=== PATIENT | female | born 1955 | race American Indian/Alaskan Native ===

== ENCOUNTER 2016-05-28 11:15 | Outpatient (CLI) | payer MEDICARE ==
[2016-05-28 11:32] LABS: Hematocrit 30.4 % (30.3-42.9); Hemoglobin 9.8 gm/dl (10.1-14.3); Mean Corpuscular HGB Conc 32 % (30-34); Mean Corpuscular Hemoglobin 29 pg (28-32); Mean Corpuscular Volume 90 fl (79-97); Platelet Count 167 K/mm3 (140-440); Red Cell Distribution Width 16.8 % (13.2-15.2); White Blood Count 5.7 K/mm3 (4.5-11.0)
[2016-05-28 11:49] LABS: Albumin 3.8 g/dL (3.9-5); BUN/Creatinine Ratio 12.04; Calcium 10.4 mg/dL (8.4-10.2); Chloride 104.1 mmol/L (98-107); Phosphorous 3.8 mg/dL (2.5-4.5); Potassium 4.1 mmol/L (3.6-5.0); Uric Acid 6.7 mg/dL (3.5-7.6)
== END 2016-05-28 11:16 | disposition home or self-care (01) ==
LOC: LAB 11:15
PROVIDERS: ATTEND Internal Medicine
DX: I12.9 Hypertensive chronic kidney disease with stage 1 through stage 4 chronic kidney disease, or unspecified chronic kidney disease (principal); N18.4 Chronic kidney disease, stage 4 (severe); D64.9 Anemia, unspecified; N25.81 Secondary hyperparathyroidism of renal origin; M10.9 Gout, unspecified; E79.0 Hyperuricemia without signs of inflammatory arthritis and tophaceous disease; R94.4 Abnormal results of kidney function studies
CPT/HCPCS: 36415; 80048; 82040; 82570; 84100; 84156; 84550; 85027

== ENCOUNTER 2017-04-16 13:37 | Outpatient (CLI) | payer MEDICARE ==
[2017-04-16 14:00] LABS: Hematocrit 35.3 % (30.3-42.9); Hemoglobin 10.9 gm/dl (10.1-14.3); Mean Corpuscular HGB Conc 31 % (30-34); Mean Corpuscular Hemoglobin 29 pg (28-32); Mean Corpuscular Volume 93 fl (79-97); Platelet Count 139 K/mm3 (140-440); Red Blood Count 3.79 M/mm3 (3.65-5.03); Red Cell Distribution Width 14.9 % (13.2-15.2); White Blood Count 5.3 K/mm3 (4.5-11.0)
[2017-04-16 14:41] LABS: Albumin 4.2 g/dL (3.9-5); Calcium 9.1 mg/dL (8.4-10.2); Chloride 105.6 mmol/L (98-107); Phosphorous 2.9 mg/dL (2.5-4.5); Potassium 4.5 mmol/L (3.6-5.0)
== END 2017-04-16 13:38 | disposition home or self-care (01) ==
LOC: LAB 13:37
DX: I12.9 Hypertensive chronic kidney disease with stage 1 through stage 4 chronic kidney disease, or unspecified chronic kidney disease (principal); N18.5 Chronic kidney disease, stage 5; M10.9 Gout, unspecified; E79.0 Hyperuricemia without signs of inflammatory arthritis and tophaceous disease; N25.81 Secondary hyperparathyroidism of renal origin
CPT/HCPCS: 36415; 80048; 82040; 82043; 83970; 84100; 85027

== ENCOUNTER 2017-07-17 10:13 | Outpatient (CLI) | payer MEDICARE ==
[2017-07-17 10:31] LABS: Hematocrit 37.5 % (30.3-42.9); Hemoglobin 11.8 gm/dl (10.1-14.3); Mean Corpuscular HGB Conc 32 % (30-34); Mean Corpuscular Hemoglobin 29 pg (28-32); Mean Corpuscular Volume 92 fl (79-97); Platelet Count 175 K/mm3 (140-440); Red Blood Count 4.07 M/mm3 (3.65-5.03); Red Cell Distribution Width 15.3 % (13.2-15.2)
[2017-07-17 11:00] LABS: Albumin 4.6 g/dL (3.9-5); Calcium 9.4 mg/dL (8.4-10.2)
[2017-07-17 11:08] LABS: Creatinine,Urine 74.3 mg/dL (0.1-20.0); Microalbumin/Creatinine Ratio 75.3 ug/mg
== END 2017-07-17 10:14 | disposition home or self-care (01) ==
LOC: LAB 10:13
DX: I12.0 Hypertensive chronic kidney disease with stage 5 chronic kidney disease or end stage renal disease (principal); N18.5 Chronic kidney disease, stage 5; M10.9 Gout, unspecified; D64.9 Anemia, unspecified; N25.81 Secondary hyperparathyroidism of renal origin
CPT/HCPCS: 36415; 80053; 82043; 83970; 85027

== ENCOUNTER 2017-11-11 10:47 | Outpatient (CLI) | payer MEDICARE ==
[2017-11-11 11:08] LABS: Hemoglobin 10.7 gm/dl (10.1-14.3); Mean Corpuscular HGB Conc 31 % (30-34); Mean Corpuscular Hemoglobin 29 pg (28-32); Mean Corpuscular Volume 93 fl (79-97); Platelet Count 145 K/mm3 (140-440); Red Blood Count 3.68 M/mm3 (3.65-5.03); Red Cell Distribution Width 15.9 % (13.2-15.2)
[2017-11-11 11:43] LABS: Calcium 9.8 mg/dL (8.4-10.2); Chol/HDL Ratio 2.38 %
[2017-11-11 20:17] LABS: Creatinine,Urine 51.5 mg/dL (0.1-20.0); Microalbumin/Creatinine Ratio 46.6 ug/mg
== END 2017-11-11 10:48 | disposition home or self-care (01) ==
LOC: LAB 10:47
DX: I12.0 Hypertensive chronic kidney disease with stage 5 chronic kidney disease or end stage renal disease (principal); N18.5 Chronic kidney disease, stage 5; E79.0 Hyperuricemia without signs of inflammatory arthritis and tophaceous disease; D64.9 Anemia, unspecified; N25.81 Secondary hyperparathyroidism of renal origin
CPT/HCPCS: 36415; 80053; 80061; 82043; 83970; 85027

== ENCOUNTER 2018-01-19 10:02 | Outpatient (CLI) | payer MEDICARE ==
[2018-01-19 10:27] LABS: Hematocrit 34.6 % (30.3-42.9); Hemoglobin 11.1 gm/dl (10.1-14.3); Mean Corpuscular HGB Conc 32 % (30-34); Mean Corpuscular Hemoglobin 30 pg (28-32); Mean Corpuscular Volume 92 fl (79-97); Platelet Count 159 K/mm3 (140-440); Red Blood Count 3.78 M/mm3 (3.65-5.03); Red Cell Distribution Width 15.6 % (13.2-15.2)
[2018-01-19 10:56] LABS: Albumin 4.6 g/dL (3.9-5); Calcium 9.8 mg/dL (8.4-10.2); Uric Acid 4.7 mg/dL (3.5-7.6)
== END 2018-01-19 10:03 | disposition home or self-care (01) ==
LOC: LAB 10:02
DX: I12.9 Hypertensive chronic kidney disease with stage 1 through stage 4 chronic kidney disease, or unspecified chronic kidney disease (principal); N18.4 Chronic kidney disease, stage 4 (severe); E79.0 Hyperuricemia without signs of inflammatory arthritis and tophaceous disease; D64.9 Anemia, unspecified
CPT/HCPCS: 36415; 80048; 82040; 83970; 84100; 84550; 85027

== ENCOUNTER 2018-08-16 14:00 | Outpatient (CLI) | payer MEDICARE ==
[2018-08-16 14:20] LABS: Creatinine,Urine 165.6 mg/dL (0.1-20.0); Protein/Creatinine Ratio,Urine 0.08
== END 2018-08-16 14:01 | disposition home or self-care (01) ==
LOC: LAB 14:00
PROVIDERS: ATTEND Internal Medicine Nephrology
DX: I12.9 Hypertensive chronic kidney disease with stage 1 through stage 4 chronic kidney disease, or unspecified chronic kidney disease (principal); N18.4 Chronic kidney disease, stage 4 (severe); D64.9 Anemia, unspecified; E79.0 Hyperuricemia without signs of inflammatory arthritis and tophaceous disease
CPT/HCPCS: 82570; 84156

== ENCOUNTER 2018-11-12 11:52 | Outpatient (CLI) | payer MEDICARE ==
[2018-11-12 12:55] LABS: Basophils % (Auto) 0.9 % (0.0-1.8); Eosinophils # (Auto) 0.2 K/mm3 (0.0-0.4); Hematocrit 30.8 % (30.3-42.9); Lymphocytes # (Auto) 1.6 K/mm3 (1.2-5.4); Lymphocytes % (Auto) 30.2 % (13.4-35.0); Mean Corpuscular HGB Conc 32 % (30-34); Mean Corpuscular Volume 95 fl (79-97); Monocytes # (Auto) 0.5 K/mm3 (0.0-0.8); Monocytes % (Auto) 9.4 % (0.0-7.3); Platelet Count 165 K/mm3 (140-440); Red Blood Count 3.25 M/mm3 (3.65-5.03); Red Cell Distribution Width 17.1 % (13.2-15.2)
[2018-11-12 13:05] LABS: Albumin 4.2 g/dL (3.9-5); Calcium 9.7 mg/dL (8.4-10.2)
== END 2018-11-12 11:53 | disposition home or self-care (01) ==
LOC: LAB 11:52
PROVIDERS: ATTEND Internal Medicine Nephrology
DX: I12.9 Hypertensive chronic kidney disease with stage 1 through stage 4 chronic kidney disease, or unspecified chronic kidney disease (principal); N18.4 Chronic kidney disease, stage 4 (severe); E79.0 Hyperuricemia without signs of inflammatory arthritis and tophaceous disease; M10.9 Gout, unspecified; N25.81 Secondary hyperparathyroidism of renal origin; D64.9 Anemia, unspecified
CPT/HCPCS: 36415; 80048; 82040; 83970; 84100; 85025